=== PATIENT | male | born 1955 | race Caucasian/White ===

== ENCOUNTER 2017-06-19 08:36 | Day surgery (SDC) | payer MEDICARE, BC ==
[2017-06-18 14:16] LABS: BASOPHILS % (AUTO) 0.3 % (0-1); EOSINOPHILS # (AUTO) 0.2 X10'3 (0-0.9); EOSINOPHILS % (AUTO) 2.4 % (0-6); HEMATOCRIT 40.3 % (42.0-52.0); HEMOGLOBIN 13.7 g/dl (14.0-17.9); LYMPHOCYTES # (AUTO) 0.6 X10'3 (1.1-4.8); LYMPHOCYTES % (AUTO) 9.2 % (21-51); MEAN CORPUSCULAR HEMOGLOBIN 32.8 PG (27.0-31.0); MEAN CORPUSCULAR VOLUME 96.6 FL (78-98); MONOCYTES # (AUTO) 0.1 X10'3 (0-0.9); MONOCYTES % (AUTO) 1.6 % (2-12); NEUTROPHILS # (AUTO) 5.5 X10'3 (1.8-7.7); NEUTROPHILS % (AUTO) 86.5 % (42-75); PLATELET COUNT 242 X10'3 (140-440); RED BLOOD COUNT 4.17 X10'6 (4.70-6.10); RED CELL DISTRIBUTION WIDTH 14.3 % (11.5-14.5); WHITE BLOOD COUNT 6.4 X10'3 (4.5-11.0)
[2017-06-18 14:26] LABS: PARTIAL THROMBOPLASTIN TIME 27 SECONDS (22-32); PROTHROMBIN TIME 9.9 SECONDS (9.0-12.0)
[2017-06-18 14:27] LABS: ALBUMIN 3.7 G/DL (3.4-5.0); ANION GAP 6 (8-16); BLOOD UREA NITROGEN 31 MG/DL (7-18); BUN/CREATININE RATIO 18.2 (5.4-32.0); CALCIUM 9.6 MG/DL (8.5-10.1); CHLORIDE 102 MMOL/L (99-107); GLUCOSE 298 MG/DL (70-104); POTASSIUM 5.8 MMOL/L (3.5-5.1); SODIUM 136 MMOL/L (135-145); eGFR 41 ML/MIN
[2017-06-19] VITALS (11 sets, daily range): BP systolic 94–155; BP diastolic 53–91
[~2017-06-19] VITALS: Ht 182.9 cm; Wt 103.1 kg
[~2017-06-19 08:36] MED LIST: ALT5C PO; ASPI-1071 PO; B2/V1TAB PO; CARV3.122 PO; CHOL2000 PO; DEXL60CA3 PO; IMD30T PO; INSU100C4 SQ; LEVO88TA2 PO; MAGN400C PO; NITR0.4T48 SL; ROSU40TA PO; TICA90TA2 PO; VITC500T PO; [UNRECOGNIZED DRUG - OTHER] PO
[2017-06-19] MEDS ORDERED: LORazepam 0.5 MG tablet PO PRN (09:15)
[2017-06-19] MEDS ORDERED: ASPI-611 PO (09:21)
[2017-06-19] MEDS ORDERED: sodium bicarbonate (8.4%) inj. 150 MEQ in dextrose 5%-water 1,000 ML IV SCH (10:15)
[2017-06-19] MEDS ORDERED: LIDOcaine 1% (10mg/ml) 2ml vial ONE (11:13)
[2017-06-19] MEDS: acetylcysteine 200 MG/ml 4ml vial PO SCH ×2 (11:25→20:39)
[2017-06-19] MEDS: diphenhydrAMINE 25mg capsule PO PRN ×2 (11:25→11:29)
[2017-06-19] MEDS: normal saline 1000ml 1,000 ML IV SCH ×2 (11:27→19:15)
[2017-06-19] MEDS ORDERED: hydrocortisone sod succ/PF 100mg/2ml inj. IV STA (12:39)
[2017-06-19] MEDS ORDERED: diphenhydrAMINE 25mg capsule PO ONE (12:40)
[2017-06-19] MEDS ORDERED: FLU VACC QS2017-18 36MOS UP/PF 60 MCG/0.5 ML SYRINGE IMVAC ONE (12:45)
[2017-06-19] MEDS ORDERED: iohexol 350 MG/ML 50ML vial IV ONE (13:20)
[2017-06-19] MEDS ORDERED: heparin 1,000unit/ml 10ml vial 10 ML ONE (13:20)
[2017-06-19] MEDS ORDERED: midazolam 2 mg/2 ml injection ONE (13:20)
[2017-06-19] MEDS ORDERED: fentaNYL/PF 50MCG/1 ML 2ML syringe ONE (13:20)
[2017-06-19] MEDS ORDERED: iohexol 350MG/ML 100ml bottle IV ONE ×2 (13:20→13:57)
[2017-06-19] MEDS ORDERED: LIDOcaine 1%/PF (10mg/ml) 5ml vial ONE (13:20)
[2017-06-19] MEDS ORDERED: nitroGLYCERIN-Tridil 50MG/D5W 250 ML IV ONE (13:21)
[2017-06-19] MEDS ORDERED: furosemide 40mg/4ml inj ONE (13:31)
[2017-06-19] MEDS ORDERED: calcium chloride 100 MG/1 ML inj IV ONE (13:41)
[2017-06-19] MEDS ORDERED: TICA90TA PO (14:31)
[2017-06-19] MEDS ORDERED: ticagrelor 90mg tablet ONE (14:35)
[2017-06-19] MEDS ORDERED: cyclobenzaprine 10mg tablet PO PRN (15:25)
[2017-06-19] MEDS ORDERED: OXAZEpam 15mg capsule PO PRN (15:25)
[2017-06-19] MEDS ORDERED: proCHLORperazine 10 MG/2 ml inj IV PRN (15:25)
[2017-06-19] MEDS ORDERED: aspirin 81mg tab.chew PO ONE (15:25)
[2017-06-19] MEDS ORDERED: nitroGLYCERIN 0.4mg SUBLingual tab SL PRN (17:50)
[2017-06-19] MEDS ORDERED: ticagrelor 90mg tablet PO SCH (20:00)
[2017-06-19 20:04] LABS: ALBUMIN 3.4 G/DL (3.4-5.0); ANION GAP 9 (8-16); BLOOD UREA NITROGEN 36 MG/DL (7-18); BUN/CREATININE RATIO 19.5 (5.4-32.0); CALCIUM 9.7 MG/DL (8.5-10.1); CHLORIDE 99 MMOL/L (99-107); CREATININE 1.85 MG/DL (0.60-1.10); POTASSIUM 4.3 MMOL/L (3.5-5.1); SODIUM 136 MMOL/L (135-145); TOTAL CARBON DIOXIDE 28.4 MMOL/L (24-32); eGFR 37 ML/MIN
[2017-06-19 20:06] LABS: GLUCOSE 483 MG/DL (70-104)
[2017-06-19] MEDS: carVEDilol 3.125mg tablet PO SCH (20:38)
[2017-06-19] MEDS: ticagrelor 90mg tablet PO SCH (20:38)
[2017-06-19] MEDS: docusate sod 100mg capsule PO SCH (20:39)
[2017-06-19] MEDS ORDERED: HYDROcodone/acetaminophen 10/325mg tab PO PRN ×2 (20:50)
[2017-06-19] MEDS ORDERED: magnesium hydroxide 30ml (MOM) UD suspension PO SCH (21:00)
[2017-06-20] MEDS: HYDROcodone/acetaminophen 10/325mg tab PO SCH ×2 (02:00→08:00)
[2017-06-20 03:00] VITALS: BP 136/65
[2017-06-20] MEDS: normal saline 1000ml 1,000 ML IV SCH (05:15)
[2017-06-20 06:00] VITALS: BP 144/83
[2017-06-20 06:12] LABS: BASOPHILS % (AUTO) 0 % (0-1); EOSINOPHILS # (AUTO) 0.2 X10'3 (0-0.9); EOSINOPHILS % (AUTO) 1.7 % (0-6); HEMATOCRIT 39.8 % (42.0-52.0); HEMOGLOBIN 13.4 g/dl (14.0-17.9); LYMPHOCYTES # (AUTO) 0.9 X10'3 (1.1-4.8); LYMPHOCYTES % (AUTO) 7.2 % (21-51); MEAN CORPUSCULAR HEMOGLOBIN 32.6 PG (27.0-31.0); MEAN CORPUSCULAR HGB CONC 33.6 % (33.0-36.5); MEAN CORPUSCULAR VOLUME 97.2 FL (78-98); MEAN PLATELET VOLUME 8.6 FL (7.4-10.4); MONOCYTES # (AUTO) 0.8 X10'3 (0-0.9); MONOCYTES % (AUTO) 6.2 % (2-12); NEUTROPHILS # (AUTO) 10.2 X10'3 (1.8-7.7); NEUTROPHILS % (AUTO) 84.9 % (42-75); PLATELET COUNT 236 X10'3 (140-440); RED BLOOD COUNT 4.09 X10'6 (4.70-6.10); WHITE BLOOD COUNT 12.1 X10'3 (4.5-11.0)
[2017-06-20 06:40] LABS: ALBUMIN 3.2 G/DL (3.4-5.0); ANION GAP 8 (8-16); BLOOD UREA NITROGEN 32 MG/DL (7-18); BUN/CREATININE RATIO 20.3 (5.4-32.0); CALCIUM 9.6 MG/DL (8.5-10.1); CHLORIDE 104 MMOL/L (99-107); CHOL/HDL RATIO 2.3 (0.00-4.99); CHOLESTEROL 151 MG/DL (0-200); CREATININE 1.58 MG/DL (0.60-1.10); GLUCOSE 243 MG/DL (70-104); HDL CHOLESTEROL 65 MG/DL (35-60); LDL CHOLESTEROL 83 MG/DL (50-100); POTASSIUM 3.7 MMOL/L (3.5-5.1); SODIUM 142 MMOL/L (135-145); TOTAL CARBON DIOXIDE 30.1 MMOL/L (24-32); TRIGLYCERIDES 64 MG/DL (20-135); eGFR 45 ML/MIN
[2017-06-20] MEDS ORDERED: pantoprazole 40mg Tablet.DR PO SCH (07:30)
[2017-06-20] MEDS ORDERED: beta-carotene(A) w/C & E + minerals tab PO SCH (08:00)
[2017-06-20] MEDS ORDERED: non-formulary drug (Aspirin (Aspir 81) 1 TAB) PO SCH (08:00)
[2017-06-20] MEDS ORDERED: lisinopril 20mg tablet PO SCH (08:00)
[2017-06-20] MEDS: docusate sod 100mg capsule PO SCH (08:00)
[2017-06-20] MEDS ORDERED: ascorbic acid 500mg tablet PO SCH (08:00)
[2017-06-20] MEDS ORDERED: isosorbide mononitrate 30mg tab.SR.24H PO SCH (08:00)
[2017-06-20] MEDS ORDERED: magnesium oxide 400mg tablet PO SCH (08:00)
[2017-06-20] MEDS ORDERED: vitamin D (cholecalciferol) 1,000 unit tablet PO SCH (08:00)
[2017-06-20] MEDS ORDERED: levoTHYROXINE 88mcg tablet PO SCH (08:00)
[2017-06-20] MEDS ORDERED: atorvastatin 20mg tablet PO SCH (08:00)
[2017-06-20] MEDS: carVEDilol 3.125mg tablet PO SCH (08:25)
[2017-06-20] MEDS: ticagrelor 90mg tablet PO SCH (08:28)
[2017-06-20] MEDS: acetylcysteine 200 MG/ml 4ml vial PO SCH (08:29)
[2017-06-20] MEDS ORDERED: aspirin 81mg tab.chew PO SCH (08:30)
== END 2017-06-20 10:15 | disposition home or self-care (01) ==
LOC: SSTAY O 08:36 → PCU 3S 17:20 → SSTAY O 06-20 10:15
PROVIDERS: ATTEND Internal Medicine Cardiovascular Disease
DX: I25.110 Atherosclerotic heart disease of native coronary artery with unstable angina pectoris (principal); E11.22 Type 2 diabetes mellitus with diabetic chronic kidney disease; I12.9 Hypertensive chronic kidney disease with stage 1 through stage 4 chronic kidney disease, or unspecified chronic kidney disease; N18.9 Chronic kidney disease, unspecified; E78.5 Hyperlipidemia, unspecified; Z79.4 Long term (current) use of insulin; Z79.82 Long term (current) use of aspirin; Z95.1 Presence of aortocoronary bypass graft; Z95.5 Presence of coronary angioplasty implant and graft; Z98.890 Other specified postprocedural states; I25.82 Chronic total occlusion of coronary artery; Z79.899 Other long term (current) drug therapy; I25.2 Old myocardial infarction; E66.3 Overweight; Z72.89 Other problems related to lifestyle; Z91.041 Radiographic dye allergy status; Z88.6 Allergy status to analgesic agent; Z88.8 Allergy status to other drugs, medicaments and biological substances; Z91.013 Allergy to seafood; Z91.018 Allergy to other foods
CPT/HCPCS: 36415; 80048; 80061; 82948; 85025; 85347; 85610; 85730; 93005; 93459; 99152; 99153; A6257; A6449; C1725; C1760; C1769; C9604; J1644; J1720; J1940; J2001; J2250; J3010; J3490; J7030; Q0163; Q2037; Q9967; A4620